=== PATIENT | female | born 1940 | race Caucasian/White ===

== ENCOUNTER 2020-04-07 08:54 | Inpatient (IN) | payer OTHER ==
[~2020-04-07] VITALS: Ht 157.5 cm; Wt 69.5 kg
[2020-04-07] MEDS ORDERED: SODIUM CHLORIDE 0.9% 1,000 ML IV ONE (09:30)
[2020-04-07 09:45] LABS: Basophils # (auto) 0 10 ^3/uL (0-0.2); Basophils % (auto) 0.4 % (0.0-2.0); Eosinophils # (auto) 0 10 ^3/uL (0-0.8); Hematocrit 41.3 % (36.0-46.0); Hemoglobin 13.9 g/dL (12.2-16.2); Lymphocytes # (auto) 0.6 10 ^3/uL (0.4-5.4); Lymphocytes % (auto) 6.4 % (10.0-50.0); Mean Corpuscular Hemoglobin 31.3 pg (28.0-32.0); Mean Corpuscular Hgb Conc. 33.7 g/dL (32.0-36.0); Mean Corpuscular Volume 92.7 fL (80.0-100.0); Monocytes # (auto) 0.8 10 ^3/uL (0-1.3); Neutrophils # (auto) 7.5 10 ^3/uL (1.6-8.6); Neutrophils % (auto) 84.2 % (37.0-80.0); Platelet Count (auto) 206 10^3/uL (140-450); Red Blood Cells 4.45 10^6/uL (4.0-5.20); Red Cell Distribution Width 12.6 % (11.8-14.3); White Blood Cell 8.9 10^3/uL (4.4-10.8)
[2020-04-07 10:09] LABS: Alanine Aminotransferase 17 U/L (13-56); Albumin 3.5 g/dL (3.4-5.0); Blood Urea Nitrogen 15 mg/dL (7-18); Calcium 9.8 mg/dL (8.5-10.1); Carbon Dioxide 27 mmol/L (21-32); Glucose 135 mg/dL (74-106)
[2020-04-07 10:42] LABS: Urine Bacteria NONE SEEN /hpf (None Seen); Urine Blood 1+ /uL (Negative); Urine Mucus FEW (None Seen); Urine WBC 11 /hpf (0 - 5)
[2020-04-07 10:56] LABS: Alkaline Phosphatase 66 U/L (45-117); Anion Gap 5 (5-15); Aspartate Aminotransferase 18 U/L (15-37); BUN/Creatinine Ratio 23.4; Bilirubin, Total 0.8 mg/dL (0.2-1.0); Chloride 100 mmol/L (98-107); GFR African American 115 mL/min; GFR Non-African American 95 mL/min; Potassium 4.1 mmol/L (3.5-5.1); Sodium 132 mmol/L (136-145)
[2020-04-07] MEDS ORDERED: levoFLOXacin 500MG 100 ML IV ONE (11:00)
[2020-04-07] MEDS ORDERED: MORPHINE SULF INJ 2 MG/ML SYRINGE 1ML IV PRN (14:00)
[2020-04-07] MEDS ORDERED: IPRATROPIUM BROM 0.5 MG/2.5ML INH SOL NEB SCH (14:00)
[2020-04-07] MEDS ORDERED: ONDANSETRON HCL 4 MG/2 ML VIAL IV PRN (14:00)
[2020-04-07] MEDS ORDERED: NITROGLYCERIN 0.4 MG SL TAB SL PRN (14:00)
[2020-04-07] MEDS ORDERED: ACETAMINOPHEN 500 MG TAB PO PRN (14:00)
[2020-04-07] MEDS: MORPHINE SULF INJ 2 MG/ML SYRINGE 1ML IV PRN ×2 (14:43→20:05)
[2020-04-07] MEDS ORDERED: ATEN50TA PO (15:06)
[2020-04-07] MEDS ORDERED: ANAS1TAB7 PO (15:06)
[2020-04-07] MEDS: HYDROcodone-ACET 5/325MG TAB PO PRN (17:45)
[2020-04-07] MEDS: IPRATROPIUM BROM 0.5 MG/2.5ML INH SOL NEB SCH (18:00)
[2020-04-07] MEDS: ALBUTEROL SULF 2.5 MG/0.5ML(0.5%) NEB SOLN NEB SCH (18:00)
--- NOTE | 2020-04-07 18:50 | NUR ---
Telemetry admit from [facility] admitted to Telemetry unit after SBAR received. Patient oriented to Amanda Molina, primary RN, unit, room, bed, and unit policies regarding patient care and visiting hours. Patient now on continuous telemetry monitoring, tele box #5 and telemetry reading on arrival to unit is SR @ 91 bpm. Patient placed on 2L/NC bedside oxygen. Bed set to lowest position/locked, bedside rails up, call light within reach. Instructed patient to call for assistance. Patient verbalized understanding. Will continue to monitor for changes.
--- NOTE | 2020-04-07 19:19 | NUR ---
ENDORSED CARE AND ADMISSION TO [facility].
--- NOTE | 2020-04-07 19:30 | NUR ---
Opening Shift Note Assumed care of patient, awake and alert x4. Patient is complaining of pain to the right side of her chest and upper back secondary to radiation last received 2 days ago (pain scale 10/10), will medicate patient as ordered by MD. Patient denies shortness of breath at this time. Instructed on plan of care and encouraged patient to call for assistance as needed, patient verbalized understanding. Bed is locked in lowest position, side rails x 2 are up, call light is within reach, and bed alarm is on.
[2020-04-07 19:40] VITALS: BP 128/59
[2020-04-07] MEDS: DOCUSATE SOD 100 MG CAP PO SCH (20:05)
[2020-04-07] MEDS ORDERED: CHOL20007 PO (20:49)
--- NOTE | 2020-04-07 21:15 | NUR ---
Pictures Patient noted to have erythema with blisters to the right side of her chest and neck. Patient also noted to have erythema to her upper right back and right armpit. Patient states the erythema is secondary to radiation she received 2 days ago. Pictures taken for reference.
[2020-04-08] VITALS (7 sets, daily range): BP systolic 121–148; BP diastolic 55–70
[2020-04-08] MEDS: MORPHINE SULF INJ 2 MG/ML SYRINGE 1ML IV PRN ×3 (00:24→11:16)
--- NOTE | 2020-04-08 02:10 | NUR ---
Covid-19 Results Charge nurse aware of negative covid-19 test.
[2020-04-08 06:10] LABS: Basophils # (auto) 0 10 ^3/uL (0-0.2); Basophils % (auto) 0.1 % (0.0-2.0); Eosinophils # (auto) 0 10 ^3/uL (0-0.8); Eosinophils % (auto) 0.1 % (0.0-7.0); Hematocrit 35.5 % (36.0-46.0); Lymphocytes # (auto) 0.4 10 ^3/uL (0.4-5.4); Lymphocytes % (auto) 4.8 % (10.0-50.0); Mean Corpuscular Hemoglobin 31.2 pg (28.0-32.0); Mean Corpuscular Hgb Conc. 33.6 g/dL (32.0-36.0); Mean Corpuscular Volume 92.8 fL (80.0-100.0); Monocytes # (auto) 0.9 10 ^3/uL (0-1.3); Monocytes % (auto) 10.7 % (0.0-12.0); Neutrophils # (auto) 7.3 10 ^3/uL (1.6-8.6); Neutrophils % (auto) 84.3 % (37.0-80.0); Platelet Count (auto) 175 10^3/uL (140-450); Red Blood Cells 3.83 10^6/uL (4.0-5.20); Red Cell Distribution Width 12.7 % (11.8-14.3); White Blood Cell 8.7 10^3/uL (4.4-10.8)
[2020-04-08 06:27] LABS: BUN/Creatinine Ratio 22.8; Calcium 8.8 mg/dL (8.5-10.1); Potassium 4.7 mmol/L (3.5-5.1)
[2020-04-08] MEDS: IPRATROPIUM BROM 0.5 MG/2.5ML INH SOL NEB SCH ×3 (06:56→18:00)
[2020-04-08] MEDS: ALBUTEROL SULF 2.5 MG/0.5ML(0.5%) NEB SOLN NEB SCH ×3 (06:56→18:00)
[2020-04-08] MEDS ORDERED: cefTRIAXone 1GM/50ML D5W 50 ML IV SCH (09:00)
[2020-04-08] MEDS ORDERED: AZITHROMYCIN 500MG/ 250ML 250 ML IV SCH (10:00)
[2020-04-08] MEDS: DOCUSATE SOD 100 MG CAP PO SCH ×2 (10:28→22:00)
[2020-04-08] MEDS: FAMOTIDINE 20 MG TAB PO SCH (10:28)
--- NOTE | 2020-04-08 11:05 | NUR ---
assessment re: ss consult Patient is a 80 year old female who is alert and oriented. Patient is on covid unit. Per prior to admission patient lived home with her son Brian and functioned independently. Patient informed me she is able to care for her own ADLs. Per patient she will return home to her prior living arrangements post discharge and family will transport her home. Patient informed me she has no need for DME or oxygen. I informed patient of her ss consult for needing more help at home. Patient stated she does not need any help. Patient informed me she does just fine on her own. I have offered patient home health and she refused at this time. Patient informed me if she needs anything her son Brian will get for her. I informed patient she has a right to speak to a social studies department chair regarding all care. I informed patient she has a right to participate in any and all discharge planning. Patient does not have a POA and advanced directive. I have offered patient information on POA and advanced directives. I informed the patient the advantages and benefits of having an Advanced Directive. Patient verbalized understanding and agreed to discharge plan. Addendum: 04/08/20 at 1122 by Alejandra BOSS Amended: Links added.
--- NOTE | 2020-04-08 11:30 | NUR ---
WOUND CARE NOTE: Wound care in to see patient per wound care request regarding "Radiation burn to Lt upper chest". Bedside nurse took photograph of patient's skin issue upon admission for reference. Patient is 80 years old female admitted for Community-Acquired Pneumonia. Patient is resting in bed in Rm. 237. She's awake, alert and oriented. She's in no stated pain at this time. She's ambulatory and self turning and repositioning. Her Teddy score is 20. No open wound noted other than erythremic skin with scabs to L upper chest and dry erythremic, peeling skin to upper back. Patient reported that it is radiation burn. 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 Incision is clean and dry, left open to air. MD ordered PRN application of Hydrogel to radiation marc to help sooth and hydrates irritated skin. Patient tolerated well, nurse at bedside. No further wound care monitoring needed at this time. RECOMMENDATION: Reconsult for active wound, pressure injury, Low Teddy score of 12 and below. Addendum: 04/08/20 at 1428 by Blanka Manzo RN Amended: Links added.
[2020-04-08] MEDS ORDERED: METOPROLOL TARTRATE 1MG/1ML-5ML VIAL IV ONE (11:45)
[2020-04-08] MEDS: METOPROLOL TARTRATE 50 MG TAB PO SCH ×2 (11:45→22:00)
[2020-04-08] MEDS ORDERED: METOPROLOL TARTRATE 1MG/1ML-5ML VIAL IV PRN (11:45)
[2020-04-08] MEDS ORDERED: dilTIAZem 25 MG/5 ML VIAL IV ONE (13:15)
--- NOTE | 2020-04-08 13:16 | NUR ---
Spoke to Data Operations Manager MD Medrano aware of patient's status including afib with RVR. New orders received for digoxin IV, Amio bolus and Amio drip per pharmacy protocol. Per MD Medrano dc previous order for Cardizem from Dr Agarwal and just medicate with dig and amio as ordered. Spoke to Pharmacist and awaiting bolus at this time. Will cont to monitor closely. Awaiting d dimer draw seed buyer aware. No acute distress or sob noted
[2020-04-08] MEDS ORDERED: DIGOXIN (250MCG/ML) 2 ML AMPULE IV ONE (13:30)
[2020-04-08] MEDS ORDERED: AMIODARONE 450mg/250ml AE 250 ML IV ONE ×3 (13:30→13:45)
[2020-04-08] MEDS ORDERED: AMIODARONE HCL 150 MG in D5W 5% 100 ML IV ONE (13:30)
--- NOTE | 2020-04-08 13:52 | NUR ---
Cardio at bedside MD Medrano at bedside, aware of patient's status including labs, currently afib hr 150's. Awaiting special agent in charge for Amio bolus as ordered at this time. Patient states chest pain upon inspiration and denies otherwise, aware. Cont to monitor closely.
--- NOTE | 2020-04-08 14:00 | NUR ---
Amio bolus started at this time BP 117/58 HR 56 Pt tolerating bolus well, cont to monitor at bedside 1407 bp 134/64 hr 136 no s/s of extravasation noted. 1420 bp123/56 HR 76 pt tolerated bolus well, cont drip at this time. Cont to monitor closely. Patient instructed to report any signs of extravasation to primary nursing right away she verbalized understanding.
--- NOTE | 2020-04-08 14:20 | NUR ---
Patient is now sinus rhythm HR 76 on continuous tele monitoring. Patient laying in bed denies sob no distress noted. Cont to monitor closely. Patient instructed to notify primary nursing of any s/s of extravasation she verbalized understanding.
[2020-04-08 14:50] LABS: INR 1.15 (0.9-1.15)
--- NOTE | 2020-04-08 16:30 | NUR ---
Patient assisted up to the bathroom and noted to desat into 80's with SOB on exertion . Patient increased to 4l n/c at this time sat 94%. Will cont to monitor closely.
--- NOTE | 2020-04-08 16:54 | NUR ---
D/C Planning Per social service consult for home health safety evaluation. faxed clinical information to [facility]. Per Maren with [facility] patient has been accepted and service to start within 24-48hrs upon d/c day.
--- NOTE | 2020-04-08 17:35 | NUR ---
at bedside MD Agarwal at bedside, aware of patient's including abnormal labs. New orders received for CT angio and venous US bilat. US tech paged to bedside per Edagr they received the order and will obtain CT. IS provided at bedside as ordered and pt instructed on use she returned demo and verbalized understanding. Cont to monitor, at this time no available tele bed. Pt currently Sinus rhythm HR 65.
[2020-04-08] MEDS ORDERED: IOHEXOL 350 MG/ML 100ML IJ ONE (18:31)
--- NOTE | 2020-04-08 18:40 | NUR ---
Patient taken to CT at this time via wheelchair and portable oxygen. No acute distress or sob noted on departure cont to monitor on arrival.
--- NOTE | 2020-04-08 19:05 | NUR ---
Patient back from CT placed on 4L n/c. Patient continued on Amio drip as ordered. No acute distress or sob noted. Patient reports tolerable pain level and refused pain meds at this time. digital camera technician at bedside. Patient care endorsed to Bill queen.
--- NOTE | 2020-04-08 19:10 | NUR ---
Opening Shift Note Assumed care of patient, awake, alert and oriented x4, on 4L of oxygen via NC with even and unlabored respirations, no S/S of distress/SOB. Patient able to ambulate independently, bed in lowest locked position, side rails up x2, and call light within reach. Instructed on POC and to call for assist PRN, will continue to monitor for changes Q1hr and PRN.
--- NOTE | 2020-04-08 19:40 | NUR ---
PAGED DR. Nadia RIVERS REGARDING RESULTS FROM CT ANGIO AND EXTREMITY VENOUS STUDY. THIS RN SPOKE WITH DR. Sami SCHMITZ REGARDING RESULTS. ORDERS RECEIVED FROM , THIS RN WILL FOLLOW THROUGH WITH ORDERS.
[2020-04-08] MEDS ORDERED: ENOXAPARIN SOD 80 MG/0.8ML SYRINGE SC ONE (19:45)
[2020-04-08] MEDS ORDERED: WARFARIN SODIUM 5 MG TAB PO ONE (19:52)
[2020-04-08] MEDS ORDERED: AMIODARONE 450mg/250ml AE 250 ML IV SCH (21:15)
--- NOTE | 2020-04-08 23:20 | NUR ---
transfer from [facility] transferred pt after report received from cristobal GONZALEZ. pt on 4L nc no distress noted or expressed. pt awake, alert and oriented x4. pt able to transfer from wheelchair to bed with minimal assistance. pt oriented to this nurse, room, restroom, bed control and use of call light. bed is locked, low and 2x rails up. call light in reach, this nurse to round q1hr and prn. pt encouraged to call as needed. pt tele sent down to tech room and new central tele box requested.
[2020-04-09] MEDS: HYDROcodone-ACET 5/325MG TAB PO PRN ×3 (01:58→23:55)
[2020-04-09] MEDS: MORPHINE SULF INJ 2 MG/ML SYRINGE 1ML IV PRN ×2 (04:56→13:15)
[2020-04-09 05:15] VITALS: BP 135/54
[2020-04-09] MEDS: ENOXAPARIN SOD 80 MG/0.8ML SYRINGE SC SCH ×2 (06:03→20:12)
[2020-04-09 06:24] LABS: Basophils # (auto) 0 10 ^3/uL (0-0.2); Basophils % (auto) 0.1 % (0.0-2.0); Eosinophils # (auto) 0 10 ^3/uL (0-0.8); Eosinophils % (auto) 0.6 % (0.0-7.0); Hematocrit 35.4 % (36.0-46.0); Hemoglobin 12.4 g/dL (12.2-16.2); Lymphocytes # (auto) 0.5 10 ^3/uL (0.4-5.4); Lymphocytes % (auto) 6.2 % (10.0-50.0); Mean Corpuscular Hemoglobin 32.1 pg (28.0-32.0); Mean Corpuscular Volume 91.8 fL (80.0-100.0); Monocytes # (auto) 0.7 10 ^3/uL (0-1.3); Monocytes % (auto) 8.4 % (0.0-12.0); Neutrophils # (auto) 7.1 10 ^3/uL (1.6-8.6); Neutrophils % (auto) 84.7 % (37.0-80.0); Platelet Count (auto) 184 10^3/uL (140-450); Red Blood Cells 3.86 10^6/uL (4.0-5.20); Red Cell Distribution Width 12.8 % (11.8-14.3); White Blood Cell 8.3 10^3/uL (4.4-10.8)
[2020-04-09 06:34] LABS: INR 1.14 (0.9-1.15); Partial Thromboplastin Time 22.5 sec (23.0-31.2)
[2020-04-09 06:47] LABS: BUN/Creatinine Ratio 23.6; Calcium 9.8 mg/dL (8.5-10.1); Magnesium 2.4 mg/dL (1.6-2.6)
[2020-04-09] MEDS: IPRATROPIUM BROM 0.5 MG/2.5ML INH SOL NEB SCH ×3 (06:59→18:19)
[2020-04-09] MEDS: ALBUTEROL SULF 2.5 MG/0.5ML(0.5%) NEB SOLN NEB SCH ×3 (06:59→18:19)
--- NOTE | 2020-04-09 07:30 | NUR ---
Opening Shift Note Assuming care of patient at this time. Patient is awake and alert. Patient denies pain. Patient shows no signs or symptoms of distress or shortness of breath. Bed is locked and lowered with side rails up x2. Instructed patient on the plan of care for today and to call for assistance as needed. Call light within reach. Will continue to round hourly and as needed.
[2020-04-09 08:54] VITALS: BP 143/68
[2020-04-09] MEDS: DOCUSATE SOD 100 MG CAP PO SCH ×2 (10:00→20:12)
[2020-04-09] MEDS: FAMOTIDINE 20 MG TAB PO SCH (10:28)
[2020-04-09] MEDS: METOPROLOL TARTRATE 50 MG TAB PO SCH ×2 (10:29→21:17)
--- NOTE | 2020-04-09 12:47 | NUR ---
Nutrition Assessment Notes please see attached link for complete assessment [employer] needs BW 69 [id number] kcals (23-25 kcal/kgBW), Est Protein needs: 69-75 gms/day (1.0-1.1 gm/kgBW). Will continue to monitor and reassess prn. Addendum: 04/09/20 at [address] Amended: Links added.
[2020-04-09 13:00] VITALS: BP 143/57
--- NOTE | 2020-04-09 13:30 | NUR ---
Call to Dr. Agarwal Spoke to Dr. Agarwal regarding patient's CIERRA status and amiodarone drip. Patient is to remain [facility]ER[facility] status. Amiodarone drip orders are to be obtained from Dr. Medrano. Will page Dr. Medrano at this time regarding amiodarone drip.
--- NOTE | 2020-04-09 13:46 | NUR ---
Page to Dr. Medrano Page to Dr. Medrano at this time regarding patient's amiodarone drip. Awaiting callback.
--- NOTE | 2020-04-09 14:50 | NUR ---
Page to Dr. Medrano Another page to Dr. Medrano at this time. Still awaiting callback.
--- NOTE | 2020-04-09 15:28 | NUR ---
D/C Planning Faxed updated order to [facility]. Informed LISA Guardado an ABG is needed to complete oxygen order.
--- NOTE | 2020-04-09 15:51 | NUR ---
Page to Dr. Medrano Another page to Dr. Medrano at this time. Still no call back regarding patient's amiodarone drip. Awaiting callback.
--- NOTE | 2020-04-09 16:00 | NUR ---
Oxygen Patient keeps "forgetting" to wear oxygen. Oxygen saturation was obtained at this time. Patient was found to have oxygen saturation at 87%. Educated patient on the importance of wearing oxygen at all times.
--- NOTE | 2020-04-09 16:00 | NUR ---
Injection Teaching Lovenox injection teaching done with patient at this time. Patient states she is familiar with giving subcutaneous injections. Patient was able to demonstrate and verbalize understanding.
--- NOTE | 2020-04-09 16:15 | NUR ---
Page to Dr. Agarwal Patient has a elevated systolic blood pressure. Social service is requesting ABGs regarding patient's home oxygen. Still no answer from Dr. Medrano regarding patient's amiodarone drip. Left a message. Awaiting callback.
[2020-04-09 16:40] VITALS: BP 162/77
[2020-04-09] MEDS ORDERED: WARFARIN SODIUM 2 MG TAB PO ONE (17:00)
--- NOTE | 2020-04-09 17:18 | NUR ---
Patient Complaining of Pain to IV site Patient is complaining of pain to IV site at this time. IV appears infiltrated. Re-page out to Dr. Medrano at this time. Awaiting callback. Page already out to Dr. Agarwal regarding other concerns. Awaiting callback.
--- NOTE | 2020-04-09 17:21 | NUR ---
Page to Dr. Medrano Re-Page to Dr. Medrano at this time regarding patient's amiodarone drip. Awaiting callback.
--- NOTE | 2020-04-09 17:25 | NUR ---
Call from Dr. Medrano Call from Dr. Medrano at this time. New orders given. Will implement.
--- NOTE | 2020-04-09 17:30 | NUR ---
IV removal Patient has had an infiltration of amiodarone drip. IV DC'd with sterile technique, catheter fully intact. Pressure dressing applied to site. Patient tolerated procedure well. Call to pharmacy. Pharmacist is recommending cold compress to see if swelling and hotness go down at this time. If swelling does not go down then an antidote may need to be given.
--- NOTE | 2020-04-09 18:00 | NUR ---
IV insertion IV access obtained, via clean sterile technique by inserting 22 gauge catheter at right AC. IV secured properly. No trauma to site. Patient tolerated well.
--- NOTE | 2020-04-09 19:02 | NUR ---
Patient Transferred to [facility] Patient transferred to [facility] at this time, patient currently on 2L nasal cannula. All belongings transferred with patient.
[2020-04-09 20:00] VITALS: BP 161/60
--- NOTE | 2020-04-09 20:00 | NUR ---
SHIFT OPENING NOTE RECEIVED PATIENT AWAKE, ALERT AND ORIENTED X4. NO SOB OR DISTRESS NOTED. REPORTS PAIN 5/10 GENERALIZED. HAS REFUSED PAIN MEDICATION AT THIS TIME. ON 3L NC POX 94%. BEDBOUND DUE TO DVTS AND PE'S. ASSISTED PATIENT WITH BEDPAN WITH 300 ML OF URINE OUTPUT. NORA CARE PERFORMED. PHYSICAL ASSESSMENT COMPLETED, SEE INTERVENTIONS. INSTRUCTED ON POC AND TO CALL FOR ASSIST NEEDED. BED IS IN THE LOWEST POSITION WITH SIDE RAILS UP X2, CALL LIGHT IS WITHIN REACH.
--- NOTE | 2020-04-09 20:25 | NUR ---
SPOKE WITH MIKAYLA SAUCEDA MELISA ON PATIENTS STATUS AND POC. REQUESTING TO SPEAK WITH MD TOMORROW. WILL ENDORSE TO THE DAY SHIFT RN.
--- NOTE | 2020-04-09 23:55 | NUR ---
PAIN ASSESSMENT PATIENT COMPLAINING OF PAIN 10/10 GENERALIZED PAIN. MEDICATED WITH NORCO PER PATIENT REQUEST.
[2020-04-10] VITALS (7 sets, daily range): BP systolic 122–157; BP diastolic 56–81
--- NOTE | 2020-04-10 04:00 | NUR ---
ROUNDS PATIENT QUIETLY LAYING IN BED SLEEPING. NO SOB, DISTRESS OR PAIN NOTED. ON 3L NC. WILL CONTINUE TO CLOSELY MONITOR.
[2020-04-10 04:53] LABS: INR 1.22 (0.9-1.15); Partial Thromboplastin Time 25.6 sec (23.0-31.2)
[2020-04-10] MEDS: ALBUTEROL SULF 2.5 MG/0.5ML(0.5%) NEB SOLN NEB SCH ×2 (05:59→12:08)
[2020-04-10] MEDS: IPRATROPIUM BROM 0.5 MG/2.5ML INH SOL NEB SCH ×2 (05:59→12:08)
--- NOTE | 2020-04-10 06:45 | NUR ---
MORNING HYGIENE CARE FULL BED BATH PERFORMED USING CHG WIPES AND WARM SOAPY WASH CLOTHES. GOWN CHANGED. PARTIAL LINEN CHANGED. PATIENT REPOSITIONED FOR COMFORT. TOLERATED IT WELL.
[2020-04-10] MEDS: ENOXAPARIN SOD 80 MG/0.8ML SYRINGE SC SCH (06:47)
--- NOTE | 2020-04-10 07:00 | NUR ---
START OF SHIFT RECEIVED PATIENT AWAKE AND CALM, COOPERATIVE WITH STAFF, POSITIONED SITTING UP IN BED FOR BREAKFAST, TABLE PLACED CLOSER TO PATIENT; CALL LIGHT WITHIN REACH, GIVEN WASH CLOTHS TO USE WHILE EATING. COLOR GOOD, LUNGS CLEAR, SATURATION GOOD ON 3 L/MIN O2 VIA CANNULA. PATIENT ABLE TO PUT BEDPAN UNDER HER TO USE.
--- NOTE | 2020-04-10 07:06 | NUR ---
END OF SHIFT REPORT GIVEN AND CARE ENDORSED TO MARQUIS GONZALEZ.
--- NOTE | 2020-04-10 09:41 | NUR ---
RN NOTES REPORT TO REBEKA RN TO TAKE OVER CARE OF PATIENT.
--- NOTE | 2020-04-10 09:41 | NUR ---
REPORT RECEIVED FROM MARQUIS GONZALEZ PATIENT AOX4 REPORTS MILD BACK PAIN RECENTLY RECEIVED NORCO FOR , PATIENT REPOSITIONED FOR COMFORT, IV SITE TO RIGHT AC WARM AND RED. INSTRUCTED BY PATIENT IV IS MOST LIKELY NO GOOD AND WILL NOT LET RN FLUSH IV AND STATES "MAYBE LATER I JUST WANT TO REST". PATIENT EDUCATED THAT IV ACCESS IS NECESSARY IF LIFE SAVING MEDICATIONS ARE NEEDED BY IV ACCESS WITH PATIENT VERBALIZING UNDERSTANDING
[2020-04-10] MEDS: DOCUSATE SOD 100 MG CAP PO SCH (10:00)
[2020-04-10] MEDS: METOPROLOL TARTRATE 50 MG TAB PO SCH (10:35)
[2020-04-10] MEDS: FAMOTIDINE 20 MG TAB PO SCH (10:35)
[2020-04-10] MEDS ORDERED: POLYETHYLENE GLYCOL 17 GM PWDR PO ONE (13:00)
--- NOTE | 2020-04-10 14:30 | NUR ---
Respiratory note: ABG RESULTS REPORTED TO RN REBEKA PO2 OF 51.3 . PT PLACED BACK ON 2L NC.
--- NOTE | 2020-04-10 14:56 | NUR ---
[facility] TO DELIVER OXYGEN TO HOSPITAL BEFORE DISCHARGE AND INSTRUCTED FOR PATIENT TO CALL COMPANY AT [phone] AND IF AFTER 5 PM TO PRESS OPTION FOR AFTER HOURS TO DELIVER. PATIENT MADE AWARE
--- NOTE | 2020-04-10 14:59 | NUR ---
1455 04/10/20 - Contacted by [facility] child welfare caseworker Brianna, who provided me with the authorization for home health agency [id number] and authorization for DME [facility] [id number]. Oxygen will be delivered today to patient at bedside per Brianna.
[2020-04-10] MEDS ORDERED: LACTULOSE 20Gm/30ML SOLN PO ONE (15:00)
[2020-04-10] MEDS ORDERED: WARF3TAB22 PO (15:59)
[2020-04-10] MEDS ORDERED: ALBUAER3 IN (15:59)
[2020-04-10] MEDS ORDERED: LEVO500T21 PO (15:59)
[2020-04-10] MEDS ORDERED: ENOX80IN SC (15:59)
[2020-04-10] MEDS ORDERED: METO-159 PO (15:59)
[2020-04-10] MEDS ORDERED: DOCU100C8 PO (15:59)
[2020-04-10] MEDS ORDERED: FLEET ENEMA(ADULT) 135 ML PR ONE ×2 (16:15→16:28)
--- NOTE | 2020-04-10 16:17 | NUR ---
DR. DIAZ PAGED
--- NOTE | 2020-04-10 16:25 | NUR ---
PRESCRIPTIONS CALLED INTO [facility] [id number] PHONE [phone] Addendum: 04/10/20 at 1634 by Jacek Robles RN SPOKE TO "MY" PHARMACIST
--- NOTE | 2020-04-10 16:38 | NUR ---
FOLLOW UP DR. DAVIS OFFICE April AT 230 PM
--- NOTE | 2020-04-10 16:54 | NUR ---
PATIENT HAD LARGE BROWN BOWEL MOVEMENT IN TOILET. PATIENT STATES SHE "FEELS MUCH BETTER".
[2020-04-10] MEDS ORDERED: WARFARIN SODIUM 2 MG TAB PO ONE (17:00)
--- NOTE | 2020-04-10 17:08 | NUR ---
OK TO DISCHARGE PER DR. DIAZ AND DR. GIL
--- NOTE | 2020-04-10 18:16 | NUR ---
OXYGEN DELIVERY TO HOME SPOKE WITH CELINE AT [facility] AND REPORTS TRACK PATROL IS AWARE AND PATIENT WILL RECEIVED HOME OXYGEN TONIGHT
--- NOTE | 2020-04-10 18:18 | NUR ---
OXYGEN EDUCATION PROVIDED TO PATIENT AND SON, INSTRUCTED ON PROPER USE HOW TO TURN ON AND OFF, TO WEAR OXYGEN ORDERED BY THE DOCTOR AND NOT TO SMOKE AROUND OXYGEN CYLINDER. ALL QUESTIONS AND CONCERNS ADDRESSED AT THIS TIME
--- NOTE | 2020-04-10 18:21 | NUR ---
PATIENT DISCHARGED WITH ALL PATIENT BELONGINGS, PATIENT INSTRUCTED TO FOLLOW UP WITH [facility], AND PCP REQUESTED BY DR. MACEDO WITH PATIENT STATING SHE WILL FOLLOW UP AND MAKE APPOINTMENTS NEEDED
== END 2020-04-10 18:00 | disposition home health service (06) | DRG 193 ==
LOC: ER 08:54 → TELE 08:55 → TELE-EAST 20:07 → TELE-CENTR 04-08 23:05 → DOU IN ICU 04-09 18:46
PROVIDERS: ADMIT Nurse Practitioner Acute Care; ATTEND Internal Medicine
DX: J18.9 Pneumonia, unspecified organism (principal); I26.99 Other pulmonary embolism without acute cor pulmonale; I82.412 Acute embolism and thrombosis of left femoral vein; E87.1 Hypo-osmolality and hyponatremia; J90 Pleural effusion, not elsewhere classified; Z20.828 Contact with and (suspected) exposure to other viral communicable diseases; C50.919 Malignant neoplasm of unspecified site of unspecified female breast; N30.90 Cystitis, unspecified without hematuria; E78.5 Hyperlipidemia, unspecified; I48.91 Unspecified atrial fibrillation; K44.9 Diaphragmatic hernia without obstruction or gangrene; K59.00 Constipation, unspecified; I10 Essential (primary) hypertension; Z88.0 Allergy status to penicillin; T21.11XA Burn of first degree of chest wall, initial encounter; Z79.899 Other long term (current) drug therapy; Y93.89 Activity, other specified; Y92.89 Other specified places as the place of occurrence of the external cause; Y99.8 Other external cause status
CPT/HCPCS: 36415; 36600; 71045; 71250; 71275; 80048; 80053; 81001; 82805; 83605; 83735; 83880; 84484; 85025; 85379; 85610; 85730; 87040; 87081; 87426; 87804; 93005; 93306; 93970; 94640; G0378; J0696; J1956; J2405; J7060

== ENCOUNTER 2023-09-12 20:02 | Emergency (ER) | payer OTHER ==
[~2023-09-12] VITALS: Ht 160 cm; Wt 72.7 kg
[~2023-09-12 20:02] MED LIST: ALBUAER3 IN; ANAS1TAB7 PO; ATEN50TA PO; CHOL20007 PO; DOCU-265 PO; ENOX80IN SC; LEVO500T31 PO; METO-159 PO; WARF-111 PO
[2023-09-12 23:20] LABS: Urine Bacteria FEW /hpf (None Seen); Urine Blood TRACE /uL (Negative); Urine Clarity HAZY (Clear); Urine Color Yellow (Yellow); Urine Mucus FEW (None Seen); Urine Protein, UAD TRACE (Negative); Urine Specific Gravity 1.022 (1.001-1.035); Urine Urobilinogen Normal (Negative); Urine WBC 106 /hpf (0 - 5); Urine pH 5.5 (5.0-9.0)
[2023-09-13] MEDS ORDERED: SULF800T23 PO (00:33)
[2023-09-13] MEDS ORDERED: ACET500T58 PO (00:33)
[2023-09-13] MEDS: cefTRIAXone SOD 1,000 MG VL IM ONE (01:00)
[2023-09-13 01:58] VITALS: BP 143/74; PULSE 84; RESP 16; TEMP 97.6; O2SAT 95
== END 2023-09-13 01:59 | disposition home or self-care (01) ==
LOC: ER 20:02
DX: N39.0 Urinary tract infection, site not specified (principal); I10 Essential (primary) hypertension; Z88.0 Allergy status to penicillin
CPT/HCPCS: 72100; 81001; 96372; 99284; J0696